=== PATIENT | male | born 2000 | race Caucasian/White ===

== ENCOUNTER 2023-10-18 05:48 | Day surgery (SDC) | payer BC ==
[2023-10-17 10:28] VITALS: BMI 27.1
[2023-10-18] MEDS ORDERED: Dexmedetomidine 200 MCG/2 ML VIAL ONE (06:30)
[2023-10-18] MEDS ORDERED: Propofol 1,000 MG/100 ML VIAL IV ONE (06:30)
[2023-10-18] MEDS ORDERED: SUGAMMADEX SODIUM 200 MG/2 ML VIAL ONE (06:30)
[2023-10-18] MEDS ORDERED: Sevoflurane 250 ML INH ANEST BOTTLE ONE (06:30)
[2023-10-18] MEDS ORDERED: Dexamethasone 20 MG/5 ML VIAL ONE (06:38)
[2023-10-18] MEDS ORDERED: Lidocaine 1% PF 5 ML VIAL ONE (06:38)
[2023-10-18] MEDS ORDERED: PROPOFOL 20 ML ONE ×2 (06:38→07:50)
[2023-10-18] MEDS ORDERED: Rocuronium Bromide 10 MG/ML (10ML VIAL) ONE (06:38)
[2023-10-18] MEDS ORDERED: Ondansetron PF 4 MG/2 ML Vial ONE ×2 (06:38→07:27)
[2023-10-18] MEDS ORDERED: Fentanyl 250 MCG/5 ML VIAL ONE (06:39)
[2023-10-18] MEDS ORDERED: Glycopyrrolate 0.2 MG/ML 5 ML SYRINGE ONE (06:39)
[2023-10-18] MEDS ORDERED: Midazolam HCl 2 mg/2 ml Vial ONE (06:39)
[2023-10-18] MEDS ORDERED: EPINEPHrine 1 MG/ML VIAL ONE (06:44)
[2023-10-18] MEDS ORDERED: Mupirocin 2% Ointment 22 GM Tube ONE (06:44)
[2023-10-18] MEDS ORDERED: Lidocaine 1% (PF) 30 ML VIAL ONE (06:45)
[2023-10-18] MEDS ORDERED: Oxymetazoline HCl 0.05% ( 15 ML ) ONE (06:49)
[2023-10-18] MEDS ORDERED: Hydrocodone-Acetamin 15 ML UDCUP ONE (09:49)
== END 2023-10-18 10:55 | disposition home or self-care (01) ==
LOC: CSHSDC 05:48
PROVIDERS: ATTEND Otolaryngology Otolaryngic Allergy
DX: J32.1 Chronic frontal sinusitis (principal); J32.3 Chronic sphenoidal sinusitis; J34.3 Hypertrophy of nasal turbinates; S02.2XXA Fracture of nasal bones, initial encounter for closed fracture; J33.9 Nasal polyp, unspecified; J32.0 Chronic maxillary sinusitis; Z79.899 Other long term (current) drug therapy; X58.XXXA Exposure to other specified factors, initial encounter
CPT/HCPCS: 88304; C1726; J0171; J1100; J2001; J2250; J2405; J2704; J3010